=== PATIENT | female | born 1970 | race Two or more races ===

== ENCOUNTER → 2017-01-15 | Day surgery (SDC) | payer OTHER ==
--- NOTE | 2017-01-20 10:04 | PATH ---
Surgical Pathology Report Patient Name: PATRICIA FRASER I. Med. Rec. #: [id number] /Age/Gender: 1970 (Age: 46) / F Account: [id number] Location: [facility] RAD[facility]OLOGY U Taken: 01/15/2017 Received: 01/15/2017 Reported: 01/20/2017 Physicians: Marilu Robledo M.D. Specimen(s) Received LEFT BREAST CENTRAL ZONE POSTERIOR CORE BIOPSY Clinical History Ultrasound findings: Suspicious Suspicious 0.5 cm enhancing focus central zone posterior Final Diagnosis BREAST, LEFT, ENHANCING FOCUS CENTRAL ZONE POSTERIOR, CORE BIOPSY: MINUTE (< 1 MM) DETACHED FRAGMENT OF INTRADUCTAL PAPILLOMA. REMAINING BREASTTISSUE SHOWS PREDOMINANTLY ADIPOSE TISSUE WITH FOCAL AREAS OF MICROCYST FORMATION, MILD USUAL DUCTAL HYPERPLASIA (UDH) AND STROMAL FIBROSIS. Electronically Signed Mariana Le M.D. Gross Description Received in formalin labeled "left breast," is a 2.3 x 2.2 and 0.3 cm aggregate of multiple ellis-yellow, irregular to cylindrical portions of fibroadipose tissue. The formalin is filtered and the specimen is entirely submitted in one cassette. Time to formalin fixation: 2 minutes Total formalin fixation time: Approximately 27 hours. 01/16/201701/16/2017
== END | disposition home or self-care (01) ==
LOC: FRADUS-SUR 12:52
PROVIDERS: ATTEND Surgery Surgical Oncology
PROC: 0HBU3ZX Excision of Left Breast, Percutaneous Approach, Diagnostic (ICD-10-PCS; principal; 2017-01-15)
DX: D24.2 Benign neoplasm of left breast (principal); N60.32 Fibrosclerosis of left breast; N60.82 Other benign mammary dysplasias of left breast; N64.89 Other specified disorders of breast; N63.23 Unspecified lump in the left breast, lower outer quadrant
CPT/HCPCS: 19085; 88305-TC; A4648; C1887; G0206-TC

== ENCOUNTER 2018-07-14 18:55 | Emergency (ER) | payer OTHER ==
[2018-07-14 19:16] VITALS: TEMP 98; BMI 30.9
[2018-07-14 21:11] VITALS: BP 153/90; PULSE 80
[2018-07-14 21:53] LABS: BASO % 1.1 % (0-2.0); EOS % 5.8 % (0-4.5); HEMATOCRIT 30.1 % (32.4-45.2); HEMOGLOBIN 9.7 GM/dl (10.7-15.3); LYMPH % 38.5 % (8-40); MCH 25.7 pg (25.7-33.7); MCHC 32.1 g/dl (32.0-36.0); MONO % 10.1 % (3.8-10.2); NEUT % 44.5 % (42.8-82.8); PLATELET COUNT 289 K/MM3 (134-434); RBC 3.77 M/mm3 (3.60-5.2); RDW 14.2 % (11.6-15.6); WHITE BLOOD COUNT 5.9 K/mm3 (4.0-10.8)
[2018-07-14 22:02] LABS: ALBUMIN 3.7 g/dl (3.4-5.0); ALK PHOS 80 U/L (45-117); ANION GAP 6 MMOL/L (8-16); BILIRUBIN,TOTAL 0.6 mg/dl (0.2-1); BLOOD UREA NITROGEN 17 mg/dl (7-18); CALCIUM 9.3 mg/dl (8.5-10); CHLORIDE 106 mmol/L (98-107); CO2 26 mmol/L (21-32); CREATININE 0.7 mg/dl (0.55-1.3); GLUCOSE,RANDOM 102 mg/dl (74-106); POTASSIUM 4.1 mmol/L (3.5-5.1); SGOT/AST 29 U/L (15-37); SGPT/ALT 29 U/L (13-61); SODIUM 138 mmol/L (136-145); TOT PROT 6.4 g/dl (6.4-8.2)
[2018-07-14] MEDS ORDERED: KETOROLAC TROMETHAMINE 60 MG/2 ML VIAL IM ONE (22:29)
[2018-07-14] MEDS ORDERED: KETOROLAC TROMETHAMINE 60 MG/2 ML VIAL ONE (22:31)
--- NOTE | 2018-07-15 06:32 | PDOC ---
Documentation entered by Abhay Garcia SCRIBE, acting as scribe for Hollie Samuels MD. Hollie Samuels MD: This documentation has been prepared by the Jose hedrick Xhesika, SCRIBE, under my direction and personally reviewed by me in its entirety. I confirm that the documentation accurately reflects all work, treatment, procedures, and medical decision making performed by me. 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 The patient describes the pain as discomfort and feels like an upset stomach radiating to her neck, shoulder blade, and L arm. The patient states she endorses arm numbness, SOB when walking long distances and headaches, secondary to her chest pain. The patient reports her pain is aggravated when she gets stressed at work and her heart tugs and with moving her arm above her head. The patient notes this is the same pain she felt when she had [place] Palsy back in 12/09. The patient states she has a family history of breast cancer and HTN . The patient notes her son at home has a cold. The patient denies back pain, any trauma to her head, or leg swelling. The patient denies fever, chills, nausea, vomit, diarrhea or constipation. The patient denies dysuria, frequency, urgency or hematuria. Allergies:NKDA. Tomato, Dogs, Cats, and seasonal allergies Surgical history: Breast Augmentation and L Knee surgery Social history: Former Smoker (quit 20 years ago). Occasional drinker PCP: Debby Briseno Past History - Past Medical History Allergies/Adverse Reactions: Allergies Allergy/AdvReac Type Severity Reaction Status Date / Time tomato Allergy Intermediate Cough Verified 07/14/18 18:58 No Known Drug Allergies Allergy Verified 07/14/18 18:58 Home Medications: Ambulatory Orders Diclofenac Sodium [Voltaren -] 75 mg PO BID PRN #14 tablet. 04/23/19 Anemia: No Asthma: No Cancer: No Cardiac Disorders: No CVA: No COPD: No CHF: No Dementia: No Diabetes: No GI Disorders: No Disorders: No HTN: No Hypercholesterolemia: No Liver Disease: No Seizures: No Thyroid Disease: No Other medical history: REDDY'S PALSY - Surgical History Abdominal Surgery: No Appendectomy: No Cardiac Surgery: No Cholecystectomy: No Lung Surgery: No Neurologic Surgery: No Orthopedic Surgery: Yes (L KNEE PATELLA REALIGNMENT) - Suicide/Smoking/Psychosocial Hx Smoking History: Never smoked Have you smoked in the past 12 months: No If you are a former smoker, when did you quit?: 1997 Information on smoking cessation initiated: No Hx Alcohol Use: Yes (SOCIAL) Drug/Substance Use Hx: No Substance Use Type: None Hx Substance Use Treatment: No Cardiac Specific PMH - Complaint Specific PMHX Pacemaker: No Review of Systems - Review of Systems Able to Perform ROS?: Yes Comments:: 07/14/18 21:23 GENERAL/CONSTITUTIONAL: No fever or chills. No weakness. HEAD, EYES, EARS, NOSE AND THROAT: No change in vision. No ear pain or discharge. No sore throat. CARDIOVASCULAR: (+) L chest pain. (+) shortness of breath. RESPIRATORY: No cough, wheezing, or hemoptysis. GASTROINTESTINAL: No nausea, vomiting, diarrhea or constipation. GENITOURINARY: No dysuria, frequency, or change in urination. MUSCULOSKELETAL: No joint or muscle swelling or pain.(+) arm numbness. (+)neck pain. (+) Shoulder blade pain. No back pain. SKIN: No rash NEUROLOGIC: (+) headache. No vertigo, loss of consciousness, or change in strength/sensation. ENDOCRINE: No increased thirst. No abnormal weight change. HEMATOLOGIC/LYMPHATIC: No anemia, easy bleeding, or history of blood clots. ALLERGIC/IMMUNOLOGIC: No hives or skin allergy. *Physical Exam - Vital Signs Last Vital Signs Temp Pulse Resp BP Pulse Ox 98 F 80 16 153/90 100 07/14/18 18:57 07/14/18 21:10 07/14/18 21:10 07/14/18 21:10 07/14/18 21:10 - Physical Exam Comments: 07/14/18 21:23 GENERAL: Awake, alert, and fully oriented, in no acute distress HEAD: No signs of trauma EYES: PERRLA, EOMI, sclera anicteric, conjunctiva clear ENT: Auricles normal inspection, hearing grossly normal, nares patent, oropharynx clear without exudates. Moist mucosa NECK: Normal ROM, supple, no lymphadenopathy, JVD, or masses LUNGS: Breath sounds equal, clear to auscultation bilaterally. No wheezes, and no crackles HEART: Regular rate and rhythm, normal S1 and S2, no murmurs, rubs or gallops CHEST WALL: (+) mild tenderness of the L anterior chest wall from ribs 6-8. (+) mild tenderness on palpation from the L anterior axillary line to midclavicular line, ribs 5,6,and 7. (+) pain is reproduced with abduction of L arm > 60 degrees. No stepoff. ABDOMEN: Soft, nontender, normoactive bowel sounds. No guarding, no rebound. No masses EXTREMITIES:(+) neurovascular pulses intact bilaterally. (+) L distal arm warm with excellent capillary refill. Normal range of motion, no edema. No clubbing or cyanosis. No cords, erythema, or tenderness NEUROLOGICAL: Cranial nerves II through XII grossly intact. Normal speech, normal gait ED Treatment Course - LABORATORY CBC & Chemistry Diagram: 07/14/18 21:40 07/14/18 21:40 - ADDITIONAL ORDERS Additional order review: Laboratory Results 07/14/18 07/14/18 21:40 21:40 Sodium 138 Potassium 4.1 Chloride 106 Carbon Dioxide 26 Anion Gap 6 L BUN 17 Creatinine 0.7 Creat Clearance w eGFR 89.31 Random Glucose 102 Calcium 9.3 Total Bilirubin 0.6 AST 29 ALT 29 Alkaline Phosphatase 80 Creatine Kinase 102 Troponin I < 0.03 Total Protein 6.4 Albumin 3.7 07/14/18 21:40 RBC 3.77 MCV 80.0 MCHC 32.1 RDW 14.2 MPV 8.0 Neutrophils % 44.5 Lymphocytes % 38.5 Monocytes % 10.1 Eosinophils % 5.8 H Basophils % 1.1 - Medications Given in the ED: ED Medications Discontinued Medications Generic Name Dose Route Start Last Admin Trade Name Freq PRN Reason Stop Dose Admin Ketorolac Tromethamine 60 mg 07/14/18 22:29 07/14/18 22:40 Toradol Injection - IM 07/14/18 22:30 60 mg ONCE ONE Administration Medical Decision Making - Medical Decision Making 12-lead electrocardiogram performed and interpreted by me: Normal sinus rhythm at 65 bpm; axis, intervals and wave forms are all normal. No evidence of acute ST or T-wave abnormalities. No evidence of acute cardiac arrhythmia. CBC/chemistry profile with troponin was performed. CBC notable for very mild anemia (hemoglobin 9.7/hematocrit 30.1) [MCV of 80 suggests iron deficiency with borderline microcytic cells]. CBC otherwise unremarkable. Chemistry profile essentially normal with troponin nonelevated. Results discussed with the patient. Clinical presentation most consistent with musculoskeletal strain of chest wall ; she may also have a neurogenic component to her pain in that she has some sensation of numbness of the dorsal surface of her left forearm/hand. Physical exam of sensation was normal for fine touch in this area, however. Nevertheless , she may have some component of neuropathy involving her left upper extremity. Therefore, a neurology referral will be provided for her: Dr. Alfonso jara on service call this week. Contact information provided for the patient. Meanwhile, Toradol 60 mg IM administered now with prescription for diclofenac 75 mg twice a day sent to her pharmacy. Patient has been advised to return to the emergency room if she has persistent, severe chest pain or experiences shortness of breath/left arm pain. She should follow-up with her primary care practitioner within the next few days. *DC/Admit/Observation/Transfer Diagnosis at time of Disposition: Atypical chest pain - Discharge Dispostion Disposition: HOME Condition at time of disposition: Stable - Prescriptions Prescriptions: Diclofenac Sodium [Voltaren -] 75 mg PO BID PRN #14 tablet.dr NELSON Reason: Pain - Referrals Referrals: Debby Nye [Primary Care Provider] - Yuki Hamilton MD [Staff Physician] - 1 week - Patient Instructions Printed Discharge Instructions: DI for Atypical Chest Pain Additional Instructions: Avoid strenuous activity involving upper body for the next week Diclofenac 75 mg twice a day as needed; take with food Follow-up with your primary care practitioner within the next 2-3 days Follow-up with neurologist (Dr.Kazmi jara) within the next week, especially if you have persistent left arm numbness Return to ER if you have more severe, persistent chest pain/left arm pain/ shortness of breath - Post Discharge Activity
--- NOTE | 2018-07-15 09:42 | EKG ---
Test Reason : Blood Pressure : / mmHG Vent. Rate : 065 BPM Atrial Rate : 065 BPM P-R Int : 178 ms QRS Dur : 100 ms QT Int : 402 ms P-R-T Axes : 045 006 030 degrees QTc Int : 418 ms NORMAL SINUS RHYTHM NORMAL ECG NO PREVIOUS ECGS AVAILABLE Confirmed by STEVEN HOWARD, CAROLYNE ([id number]) on 07/15/2018 9:42:23 AM Referred By: Confirmed By:CAROLYNE HARRIS MD
== END 2018-07-14 22:44 | disposition home or self-care (01) ==
LOC: FER 18:55
PROC: 3E0233Z Introduction of Anti-inflammatory into Muscle, Percutaneous Approach (ICD-10-PCS; principal; 2018-07-14)
DX: R07.89 Other chest pain (principal); Z87.891 Personal history of nicotine dependence; I10 Essential (primary) hypertension; G51.0 Bell's palsy
CPT/HCPCS: 36415; 80053; 82550; 84484; 85025; 93005; 99282-25